=== PATIENT | female | born 1985 | race Caucasian/White ===

== ENCOUNTER 2021-02-08 21:29 | Emergency (ER) | payer OTHER ==
[~2021-02-08 21:29] MED LIST: LISINOPRIL20 MG PO; MELATONIN5 M2 PO; MIRALAX17 GM PO; RANITIDINE HCL300 MG PO; VISTARIL25 MG PO; VITAMIN B12 PO
[2021-02-08] MEDS ORDERED: AUGMENTIN 875-1 EACH PO (22:39)
[2021-02-08] MEDS ORDERED: NAPROSYN500 MG PO (22:39)
== END 2021-02-08 23:05 | disposition home or self-care (01) ==
LOC: ER1 21:29
DX: K02.9 Dental caries, unspecified (principal); K05.10 Chronic gingivitis, plaque induced; F17.200 Nicotine dependence, unspecified, uncomplicated
CPT/HCPCS: 99282